=== PATIENT | female | born 1965 | race Caucasian/White ===

== ENCOUNTER 2017-05-17 12:10 | Emergency (ER) | payer SELFPAY ==
[2017-05-17 12:15] VITALS: BP 174/96; PULSE 98; RESP 18; TEMP 98; O2SAT 100
[2017-05-17] MEDS ORDERED: SODIUM CHLOR 0.9% 1000 ML INJ 1,000 ML IV SCH (13:03)
--- NOTE | 2017-05-17 13:09 | PD ---
HPI Chief Complaint: Neuro Symptoms/ Deficits Time Seen by Provider: 12:46 Travel History International Travel<30 days: No Contact w/Intl Traveler<30days: No Traveled to known affect area: No History of Present Illness HPI 51-year-old female, with history of TIA in July 2016, presents to the emergency department with complaint of right temporal headache for the past 2-3 days. She says this headache is consistent with the headache that she had in July when she was diagnosed with TIA. Pain radiates to her right ear and right neck. Says she has right-sided peripheral vision loss from her past TIA and does not know if it has changed. Says that by the end of the day she has lots of words and slurred speech for the past 2-3 days. Denies confusion, disorientation, focal deficits or weakness. Says she does have right-sided weakness that comes and goes since her TIA in July also. Denies change in gait. Denies fever, vomiting, recent illness. Denies illicit drug use. Reports social alcohol use. Reports tobacco use. Rates headache 10/06. Describes as throbbing and pressure. Has not taken any medication or try any treatments to alleviate her symptoms. Takes baby aspirin daily. Denies anticoagulant therapy. Primary care provider is [facility] in [place]. Allergies to sulfa. History of TIA and IDDM type II. Has no other medical complaints. No other modifying factors or associated signs and symptoms. PFSH Past Medical History Cerebrovascular Accident: Yes Diabetes: Yes Patient Takes Glucophage: No ?: Not LMP: tubal ligation Tubal Ligation: Yes Past Surgical History Cholecystectomy: Yes Eye Surgery: Yes (CORNEA TRANS X 2) Gynecologic Surgery: Yes (TUBAL LIGATION ) Social History Alcohol Use: Yes (OCC) Tobacco Use: Yes Substance Use: No Allergies-Medications (Allergen,Severity, Reaction): Coded Allergies: Sulfa (Sulfonamide Antibiotics) (Verified Allergy, Unknown, 05/17/17) Review of Systems Except as stated in HPI: all other systems reviewed are Neg Physical Exam Narrative GENERAL: Well-nourished, well-developed female patient, in no acute distress SKIN: Warm and dry. HEAD: Atraumatic. Normocephalic. No facial droop noted. Tongue midline. Shoulder shrug equal. Finger to nose test normal. EYES: Pupils equal and round at 3 mm with brisk reaction. No scleral icterus. No injection or drainage. PERRLA. EOMI. ENT: Mucosa pink and moist. No erythema or exudates. No uvular edema. No uvular , palatal, or tonsillar deviation. Airway patent. Nasal turbinates appear normal without nasal blood, purulent drainage or septal hematoma. EARS: Bilateral pinnae and external canals appear within normal limits. Bilateral tympanic membranes without erythema, dullness or perforation. NECK: Trachea midline. No lymphadenopathy. CARDIOVASCULAR: Regular rate. RESPIRATORY: No accessory muscle use. GASTROINTESTINAL: Flat. MUSCULOSKELETAL: No obvious deformities. No clubbing. No cyanosis. No edema. NEUROLOGICAL: Awake and alert. Oriented 4. No obvious cranial nerve deficits. Motor grossly within normal limits. Normal speech. No ataxia. No mid -line drift. No upper or lower extremity drift. Finished Hardware Erector strength equal bilaterally. Sensory intact and equal bilaterally. Moves all extremities. Active plantar and dorsiflexion and strength equal bilaterally. 5/5 strength to all extremities. PSYCHIATRIC: Appropriate mood and affect; insight and judgment normal. Data Data Last Documented VS Vital Signs Date Time Temp Pulse Resp B/P (MAP) Pulse Ox O2 Delivery O2 Flow Rate FiO2 05/17/17 12:15 98.0 98 18 174/96 (122) [address] Brain W/O Iv Contrast(Rout) (05/17/17 ) Basic Metabolic Panel (Bmp) (05/17/17 13:03) Complete Blood Count With Diff (05/17/17 13:03) Prothrombin Time / Inr (Pt) (05/17/17 13:03) Act Partial Throm Time (Ptt) (05/17/17 13:03) Sodium Chlor 0.9% 1000 Ml Inj (Ns 1000 M (05/17/17 13:03) Sodium Chloride 0.9% Flush (Ns Flush) (05/17/17 13:15) Acetaminophen (Tylenol) (05/17/17 13:15) Ketorolac Inj (Toradol Inj) (05/17/17 14:45) Labs Laboratory Tests Test 05/17/17 13:05 White Blood Count 9.4 TH/MM3 Red Blood Count 4.43 MIL/MM3 Hemoglobin 13.6 GM/DL Hematocrit 40.1 % Mean Corpuscular Volume 90.4 FL Mean Corpuscular Hemoglobin 30.6 PG Mean Corpuscular Hemoglobin Concent 33.8 % Red Cell Distribution Width 13.7 % Platelet Count 417 TH/MM3 Mean Platelet Volume 7.4 FL Neutrophils (%) (Auto) 46.1 % Lymphocytes (%) (Auto) 46.4 % Monocytes (%) (Auto) 4.5 % Eosinophils (%) (Auto) 2.3 % Basophils (%) (Auto) 0.7 % Neutrophils # (Auto) 4.3 TH/MM3 Lymphocytes # (Auto) 4.4 TH/MM3 Monocytes # (Auto) 0.4 TH/MM3 Eosinophils # (Auto) 0.2 TH/MM3 Basophils # (Auto) 0.1 TH/MM3 CBC Comment DIFF FINAL Differential Comment Prothrombin Time 9.2 SEC Prothromb Time International Ratio 0.9 RATIO Activated Partial Thromboplast Time 24.7 SEC Blood Urea Nitrogen 8 MG/DL Creatinine 0.66 MG/DL Random Glucose 257 MG/DL Calcium Level 9.2 MG/DL Sodium Level 138 MEQ/L Potassium Level 4.0 MEQ/L Chloride Level 103 MEQ/L Carbon Dioxide Level 26.4 MEQ/L Anion Gap 9 MEQ/L Estimat Glomerular Filtration Rate 95 ML/MIN MDM Medical Decision Making Medical Screen Exam Complete: Yes Emergency Medical Condition: Yes Medical Record Reviewed: Yes Differential Diagnosis Acute headache, TIA, otitis media, cerumen impaction Narrative Course 51-year-old female with history of TIA in July with right temporal headache. Neuro exam is unremarkable. Patient takes baby aspirin daily, otherwise denies anticoagulant therapy. CT head, IV, normal saline bolus, CBC, BMP, coags ordered. 1429: Ct head with no acute intracranial findings. I discussed CT findings with the patient. I discussed lumbar puncture to completely rule out acute process secondary to headache and the patient declined. Patient reports improvement in headache. Rates headache 5/10. CBC unremarkable. Toradol ordered. 1437: Random glucose 257, Otherwise,CBC unremarkable. Dr. Lima evaluated the patient and agrees with discharge. Instructed patient to follow-up with neurology. Instructed patient to follow up with primary care provider. Patient provided information for [facility] for follow-up. Patient verbalizes understanding and agreement with treatment plan. Patient is medically cleared and stable for discharge. Discussed reasons to return to the emergency department. Patient agrees with treatment plan. The patients vital signs are stable and the patient is stable for outpatient follow-up and treatment. Patient discharged home, stable and in no acute distress. Diagnosis Primary Impression: Headache Qualified Codes: R51 - Headache Referrals: [facility] Primary Care Physician Patient Instructions: Acute Headache (ED), General Instructions Additional Instructions: Ibuprofen or Tylenol as directed and as needed to reduce headache Get plenty of rest: do not over sleep rest and relax in a dark, quiet room as needed Place an ice pack on the back of her neck to reduce head pain as needed Keep a headache diary of what triggers her headaches and what treatment is most effective Avoid identifiable triggers Avoid smoking, alcohol and caffeine consumption Reduce stress Follow-up with primary care provider within 1-2 days Follow-up with neurology Return immediately to the emergency department with worsening symptoms Med/Other Pt SpecificInfo: No Change to Meds, No Meds Exist/No RX given Disposition: 01 DISCHARGE HOME Condition: Stable Gemma Fitzgerald May 17, 2017 13:09
[2017-05-17] MEDS ORDERED: SODIUM CHLORIDE 0.9% FLUSH 10 ML FLUSH IV FLUSH PRN (13:15)
[2017-05-17] MEDS ORDERED: ACETAMINOPHEN 325 MG TAB PO ONE (13:15)
--- NOTE | 2017-05-17 13:44 | RADRPT ---
EXAM DATE/TIME: 05/17/2017 13:27 [facility] COMPARISON: No previous studies available for comparison. INDICATIONS : Headache and vision changes. RADIATION DOSE: 35.73 CTDIvol (mGy) MEDICAL HISTORY : Stroke. Diabetes mellitus type 2. SURGICAL HISTORY : Cholecystectomy. Tubal ligation.Cornea transplant. ENCOUNTER: Initial ACUITY: 1 day PAIN SCALE: 4/10 LOCATION: Right temporal TECHNIQUE: Multiple contiguous axial images were obtained of the head. Using automated exposure control and adj ustment of the mA and/or kV according to patient size, radiation dose was kept as low as reasonably a chievable to obtain optimal diagnostic quality images. DICOM format image data is available electro nically for review and comparison. FINDINGS: There is mild lateral ventricular asymmetry which may be developmental. No evidence of intracranial h emorrhage or mass. There is nothing to suggest acute infarction. The extracranial structures are [place] gn and intact. CONCLUSION: No acute intracranial findings Lincoln Feliciano MD on May 17, 2017 at 13:31 Board Certified Radiologist. This report was verified electronically.
[2017-05-17 14:24] LABS: AUTOMATED NEUTROPHIL # 4.3 TH/MM3 (1.8-7.7); BASOPHIL # 0.1 TH/MM3 (0-0.2); BASOPHIL % 0.7 % (0.0-2.0); EOSINOPHIL # 0.2 TH/MM3 (0-0.4); EOSINOPHIL % 2.3 % (0.0-4.0); HEMATOCRIT 40.1 % (35.0-46.0); HEMOGLOBIN 13.6 GM/DL (11.6-15.3); LYMPH % 46.4 % (9.0-44.0); LYMPHOCYTE # 4.4 TH/MM3 (1.0-4.8); MEAN CELL VOLUME 90.4 FL (80.0-100.0); MEAN CORPUSCULAR HEMOGLOBIN 30.6 PG (27.0-34.0); MEAN CORPUSCULAR HGB CONC 33.8 % (32.0-36.0); MEAN PLATELET VOLUME 7.4 FL (7.0-11.0); MONO % 4.5 % (0.0-8.0); MONOCYTE # 0.4 TH/MM3 (0-0.9); NEUT % 46.1 % (16.0-70.0); PLATELET COUNT 417 TH/MM3 (150-450); RED BLOOD COUNT 4.43 MIL/MM3 (4.00-5.30); RED CELL DISTRIBUTION WIDTH 13.7 % (11.6-17.2); WHITE BLOOD COUNT 9.4 TH/MM3 (4.0-11.0)
[2017-05-17 14:30] LABS: INTERNATIONAL NORMALIZED RATIO 0.9 RATIO; PROTHROMBIN TIME - PATIENT 9.2 SEC (9.8-11.6)
[2017-05-17 14:36] LABS: BICARBONATE 26.4 MEQ/L (21.0-32.0); CALCIUM 9.2 MG/DL (8.5-10.1); CREATININE 0.66 MG/DL (0.50-1.00)
[2017-05-17] MEDS ORDERED: KETOROLAC TROMETHAMINE 30 MG/ML (IVP) VIAL IV PUSH ONE (14:45)
--- NOTE | 2017-05-17 14:55 | PD ---
Physical Exam Narrative I, Dr. Lima, have reviewed the advance practice practitioner's documentation and am in agreement, met with the patient face to face, made the diagnosis, and the medical decision making was done by me. *My assessment and Findings: Anxiety vs. migraine headache vs. tension headache 51yo F with multiple complaints. Said she has difficulty thinking for months. Has history of anxiety, DM, TIA. Said for the last 3 days, she feels that she wants to say something but the words wont come out right. Said it only happens at night. Denies any new focal weakness or numbness. Sometimes has tingling in fingers. Pt has headache in right temporal region for few days that is associated with photophobia and phonophobia. Normally takes execdrin but did not take it today. CT brain negative. Labs reviewed, no leukocytosis. H/H normal. Glucose elevated at 257. No increased anion gap. Normal CO2. Do not think pt is having a TIA. Headache improved with NS IVF and toradol. Return precautions given. Data Data Last Documented VS Vital Signs Date Time Temp Pulse Resp B/P (MAP) Pulse Ox O2 Delivery O2 Flow Rate FiO2 05/17/17 12:15 98.0 98 18 174/96 (122) [address] Brain W/O Iv Contrast(Rout) (05/17/17 ) Basic Metabolic Panel (Bmp) (05/17/17 13:03) Complete Blood Count With Diff (05/17/17 13:03) Prothrombin Time / Inr (Pt) (05/17/17 13:03) Act Partial Throm Time (Ptt) (05/17/17 13:03) Sodium Chlor 0.9% 1000 Ml Inj (Ns 1000 M (05/17/17 13:03) Sodium Chloride 0.9% Flush (Ns Flush) (05/17/17 13:15) Acetaminophen (Tylenol) (05/17/17 13:15) Ketorolac Inj (Toradol Inj) (05/17/17 14:45) Ed Discharge Order (05/17/17 14:49) Labs Laboratory Tests Test 05/17/17 13:05 White Blood Count 9.4 TH/MM3 Red Blood Count 4.43 MIL/MM3 Hemoglobin 13.6 GM/DL Hematocrit 40.1 % Mean Corpuscular Volume 90.4 FL Mean Corpuscular Hemoglobin 30.6 PG Mean Corpuscular Hemoglobin Concent 33.8 % Red Cell Distribution Width 13.7 % Platelet Count 417 TH/MM3 Mean Platelet Volume 7.4 FL Neutrophils (%) (Auto) 46.1 % Lymphocytes (%) (Auto) 46.4 % Monocytes (%) (Auto) 4.5 % Eosinophils (%) (Auto) 2.3 % Basophils (%) (Auto) 0.7 % Neutrophils # (Auto) 4.3 TH/MM3 Lymphocytes # (Auto) 4.4 TH/MM3 Monocytes # (Auto) 0.4 TH/MM3 Eosinophils # (Auto) 0.2 TH/MM3 Basophils # (Auto) 0.1 TH/MM3 CBC Comment DIFF FINAL Differential Comment Prothrombin Time 9.2 SEC Prothromb Time International Ratio 0.9 RATIO Activated Partial Thromboplast Time 24.7 SEC Blood Urea Nitrogen 8 MG/DL Creatinine 0.66 MG/DL Random Glucose 257 MG/DL Calcium Level 9.2 MG/DL Sodium Level 138 MEQ/L Potassium Level 4.0 MEQ/L Chloride Level 103 MEQ/L Carbon Dioxide Level 26.4 MEQ/L Anion Gap 9 MEQ/L Estimat Glomerular Filtration Rate 95 ML/MIN MDM Supervised Visit with ALEJANDRO: Yes Diagnosis Primary Impression: Headache Qualified Codes: R51 - Headache Referrals: [facility] Primary Care Physician Patient Instructions: General Instructions, Acute Headache (ED) Additional Instruction: Ibuprofen or Tylenol as directed and as needed to reduce headache Get plenty of rest: do not over sleep rest and relax in a dark, quiet room as needed Place an ice pack on the back of her neck to reduce head pain as needed Keep a headache diary of what triggers her headaches and what treatment is most effective Avoid identifiable triggers Avoid smoking, alcohol and caffeine consumption Reduce stress Follow-up with primary care provider within 1-2 days Follow-up with neurology Return immediately to the emergency department with worsening symptoms Disposition: 01 DISCHARGE HOME Condition: Stable Denisse Lima May 17, 2017 14:55
== END 2017-05-17 16:42 | disposition home or self-care (01) ==
LOC: NEPD 12:10
DX: R51 Headache (principal); E11.9 Type 2 diabetes mellitus without complications; F41.9 Anxiety disorder, unspecified; Z86.73 Personal history of transient ischemic attack (TIA), and cerebral infarction without residual deficits; Z72.0 Tobacco use
CPT/HCPCS: 70450; 80048; 85025; 85610; 85730; 96374; 99284; J1885; J7030